=== PATIENT | female | born 1995 | race African-American/Black ===

== ENCOUNTER → 2020-11-01 00:03 | Observation (INO) ==
[2020-10-31 21:39] LABS: Bacteria,Urine Few per hpf (None-Few); Bilirubin,Urine Negative (Negative); Blood,Urine Negative (Negative); Clarity,Urine Ex.Turbid (Clear); Color,Urine Yellow (Yellow); Glucose,Urine (UA) 50 mg/dL (Normal); Ketones,Urine 60 mg/dL (Negative); Leukocyte Esterase,Urine Moderate (Negative); Mucus,Urine Many per lpf (None-Few); Nitrite,Urine Negative (Negative); Protein,Urine 200 mg/dL (Neg-Trace); Specific Gravity,Urine > 1.030 (1.010-1.025); Squamous Epithelial Cell,Urine Many per hpf (None-Few); Transitional Epi Cells,Urine Few per hpf (None-Few); Urobilinogen,Urine Normal (Normal)
[~2020-11-01 00:03] MED LIST: Ondansetron 4 MG/2 ML VIAL IVP ONE; Ondansetron ODT 4 MG TAB.RAPDIS SL ONE; Ringers Solution, Lactated 1,000 ML IVC ONE
== END | disposition home or self-care (01) ==
LOC: 1NENULAB
PROVIDERS: ADMIT Student in an Organized Health Care Education/Training Program; ATTEND Student in an Organized Health Care Education/Training Program

== ENCOUNTER 2020-11-12 05:45 | Inpatient (IN) ==
[2020-11-12] MEDS ORDERED: Famotidine 20 MG/2 ML VIAL IVP PRN (06:36)
[2020-11-12] MEDS ORDERED: Naloxone 0.4 MG/ML INJ IVP PRN (06:36)
[2020-11-12] MEDS ORDERED: Metoclopramide 10 MG/2 ML VIAL IVP PRN ×2 (06:36→11:31)
[2020-11-12] MEDS ORDERED: *HR* OxyCODONE Immed Rel 5 MG TABLET PO PRN (06:38)
[2020-11-12] MEDS ORDERED: Ondansetron 4 MG/2 ML VIAL IVP PRN ×2 (06:38→11:31)
[2020-11-12] MEDS ORDERED: *HR* HYDROmorphone PF 0.5 MG/0.5 ML SYRINGE IVP PRN (06:38)
[2020-11-12] MEDS ORDERED: Ringers Solution, Lactated 1,000 ML ONE (06:40)
[2020-11-12] MEDS ORDERED: Ringers Solution, Lactated 1,000 ML IVC SCH (06:45)
[2020-11-12 06:59] LABS: Basophils % 0.3 %; Eosinophils # 0.1 K/mcL (0.0-0.6); Eosinophils % 1.2 %; Hematocrit 37.1 % (35.3-44.9); Hemoglobin 12.3 g/dL (11.5-15.4); Immature Granulocytes % 0.4 % (0-4); Lymphocytes # 2.7 K/mcL (0.6-4.6); Lymphocytes % 22.2 %; Mean Corpuscular HGB Conc 33.2 g/dL (31.6-35.5); Mean Corpuscular Volume 90.5 fL (83.0-100.0); Mean Platelet Volume 9.5 fL (9.4-12.4); Monocytes % 8.7 %; Platelet Count 219 K/mcL (140-400); Red Cell Distribution Width 12.3 % (11.5-14.5); Segmented Neutrophils % 67.2 %
[2020-11-12] MEDS ORDERED: Ondansetron 4 MG/2 ML VIAL ONE (07:00)
[2020-11-12] MEDS ORDERED: *HR* FentaNYL (PF) 100 MCG/2 ML VIAL ONE (07:00)
[2020-11-12] MEDS ORDERED: EPHEDrine 50 MG/ML VIAL ONE (07:00)
[2020-11-12] MEDS ORDERED: Acetaminophen IV 1,000 MG/100 ML BAG IVPB ONE (07:00)
[2020-11-12] MEDS ORDERED: *HR* Morphine Sulfate/PF 10 MG/10 ML AMPUL ONE (07:00)
[2020-11-12] MEDS ORDERED: *HR* Phenylephrine 10 MG/ML VIAL ONE (07:00)
[2020-11-12] MEDS ORDERED: CeFAZolin 2,000 MG/50 ML BAG IVPB ONE (07:08)
[2020-11-12] MEDS ORDERED: Oxytocin 20 units/ LR 1000 mL 20 UNIT/1,000 ML BAG IVC ONE ×2 (07:16→10:53)
[2020-11-12 08:21] LABS: Amphetamine Screen,Urine Negative ng/mL (Cutoff=1000); Barbiturate Screen,Urine Negative ng/mL (Cutoff=200); Benzodiazepines Screen,Urine Negative ng/mL (Cutoff=200); Cannabinoid Screen,Urine Positive ng/mL (Cutoff = 50); Cocaine Screen,Urine Negative ng/mL (Cutoff= 300); Opiate Screen,Urine Negative ng/mL (Cutoff=300); Phencyclidine Screen,Urine Negative ng/mL (Cutoff=25)
[2020-11-12] MEDS ORDERED: Oxytocin 20 units/ LR 1000 mL 20 UNIT/1,000 ML BAG IVC SCH (11:31)
[2020-11-12] MEDS ORDERED: NON-FORMULARY MEDICATION 1 EACH EACH (Prenatal Vitamin Tablet 1 TAB) PO SCH (11:31)
[2020-11-12] MEDS ORDERED: Sennosides 8.6 MG TABLET PO PRN (11:31)
[2020-11-12] MEDS ORDERED: *HR* OxyCODONE/APAP 5/325 TABLET PO PRN (11:31)
[2020-11-12] MEDS ORDERED: Simethicone 80 MG TAB.CHEW PO PRN (11:31)
[2020-11-12] MEDS: Prenatal Vit/FA 1 EACH TABLET PO SCH (15:54)
[2020-11-12] MEDS: metroNIDAZOLE 500 MG TABLET PO SCH ×3 (15:56→19:35)
[2020-11-12] MEDS: Aspirin 81 MG TAB.CHEW PO SCH (15:56)
[2020-11-12] MEDS ORDERED: CeFAZolin 2 GM/120 ML BAG IVPB SCH (16:00)
[2020-11-12] MEDS: Ibuprofen 600 MG TABLET PO PRN (16:24)
[2020-11-12] MEDS: CeFAZolin 2,000 MG/50 ML BAG IVPB SCH (16:25)
[2020-11-12] MEDS: Acetaminophen 325 MG TABLET PO PRN (18:02)
[2020-11-13] MEDS: Ibuprofen 600 MG TABLET PO PRN (00:33)
[2020-11-13] MEDS: CeFAZolin 2,000 MG/50 ML BAG IVPB SCH ×2 (00:33→08:58)
[2020-11-13] MEDS: Acetaminophen 325 MG TABLET PO PRN (05:43)
[2020-11-13 06:14] LABS: Basophils % 0.2 %; Eosinophils # 0.2 K/mcL (0.0-0.6); Eosinophils % 1.5 %; Hematocrit 33.3 % (35.3-44.9); Hemoglobin 11.1 g/dL (11.5-15.4); Immature Granulocytes % 0.3 % (0-4); Lymphocytes # 1.4 K/mcL (0.6-4.6); Lymphocytes % 13.9 %; Mean Corpuscular HGB Conc 33.3 g/dL (31.6-35.5); Mean Corpuscular Hemoglobin 30.7 pg (28.0-33.3); Mean Corpuscular Volume 92.2 fL (83.0-100.0); Mean Platelet Volume 9.4 fL (9.4-12.4); Monocytes # 1.1 K/mcL (0.0-1.3); Monocytes % 10.9 %; Neutrophils # 7.2 K/mcL (1.6-8.9); Platelet Count 173 K/mcL (140-400); Red Blood Count 3.61 M/mcL (3.82-4.97); Red Cell Distribution Width 12.3 % (11.5-14.5); Segmented Neutrophils % 73.2 %; White Blood Count 9.8 K/mcL (4.3-11.1)
[2020-11-13 07:48] VITALS: BP 114/59
[2020-11-13] MEDS: metroNIDAZOLE 500 MG TABLET PO SCH (08:59)
[2020-11-13] MEDS: Aspirin 81 MG TAB.CHEW PO SCH (08:59)
[2020-11-13] MEDS: Prenatal Vit/FA 1 EACH TABLET PO SCH (08:59)
== END 2020-11-13 14:31 | disposition home or self-care (01) | DRG 540 ==
LOC: 1NENULAB 05:53 → 1NENUOBS 11:16
PROVIDERS: ADMIT Obstetrics & Gynecology; ATTEND Obstetrics & Gynecology